=== PATIENT | male | born 1995 | race Caucasian/White ===

== ENCOUNTER 2016-09-19 07:16 | Emergency (ER) | payer BC ==
[2016-09-19] MEDS ORDERED: Ondansetron INJ* 2 MG/ML VIAL IV ONE (07:56)
[2016-09-19] MEDS ORDERED: Famotidine IV* 10 MG/ML 2 ML (20 mg) IV ONE (07:56)
[2016-09-19] MEDS: NS 0.9% 1000 ML* 2,000 ML IV ONE ×2 (08:57→08:58)
--- NOTE | 2016-09-19 09:03 | RAD ---
HISTORY: Fever COMPARISONS: None VIEWS: 2: Frontal dual-energy and lateral views of the chest. FINDINGS: CARDIOMEDIASTINAL SILHOUETTE: The cardiomediastinal silhouette is normal. RADHA: The radha are normal. PLEURA: The costophrenic angles are sharp. No pleural abnormalities are noted. LUNG PARENCHYMA: The lungs are clear. ABDOMEN: The upper abdomen is clear. There is no subphrenic gas. BONES AND SOFT TISSUES: No bone or soft tissue abnormalities are noted. OTHER: None. IMPRESSION: NO ACTIVE CARDIOPULMONARY DISEASE.
[2016-09-19 09:04] LABS: Hematocrit 47 % (42-52); Mean Corpuscular HGB Conc 34 g/dl (31-36); Mean Corpuscular Hemoglobin 30 pg (27-31); Mean Corpuscular Volume 87 fL (80-94); Mean Platelet Volume 8 um3 (7.4-10.4); Red Blood Count 5.33 10^6/ul (4.0-5.4); Red Cell Distribution Width 13 % (10.5-15); White Blood Count 5.1 10^3/ul (3.5-10.8)
[2016-09-19 09:20] LABS: Albumin 4.5 g/dL (3.2-5.2); BUN/Creatinine Ratio 16.1 (8-20); C Reactive Protein 65.3 mg/L (< 5.00); Calcium 9.6 mg/dL (8.6-10.3); EGFR African American 107.5 (>60); EGFR Non-African American 83.6 (>60); Globulin 3.9 g/dL (2-4); Magnesium 1.9 mg/dL (1.9-2.7); Total Bilirubin 0.4 mg/dL (0.2-1.0); Total Protein 8.4 g/dL (6.4-8.9)
[2016-09-19] MEDS ORDERED: Acetaminophen TAB* 325 MG PO ONE (09:29)
[2016-09-19 11:27] LABS: Urine Bacteria Absent (Absent); Urine Bilirubin Negative (Negative); Urine Glucose Negative (Negative); Urine Nitrite Negative (Negative)
[2016-09-19] MEDS ORDERED: NS 0.9% 1000 ML* 1,000 ML IV ONE (11:27)
[2016-09-19 13:48] VITALS: BP 122/60
--- NOTE | 2016-09-19 23:00 | ED ---
Sarah Allen Matthew, scribed for Enmanuel Lewis MD on 09/19/16 at 0813 . HPI Febrile Illness - HPI Summary HPI Summary: A 21 y/o male presents to the ED with sinus pain and fever since 09/11/16. The patient was in the [place] and returned 09/11/16 feeling ill. He was seen on 09/16/16 and was placed on 1000mg of amoxicillin twice daily by his PCP in [facility]. He called his PCP back and stated that Abx wasn't work and was prescribed an additional Z-Pack. Associated symptoms today include nausea, diarrhea - after taking the Abx, fever, chills, weakness, diaphoresis, nasal congestion, post-nasal drip, sinus pain, and abdominal pain - after taking the Abx. He denies itchy or watery eyes. Hx of seasonal allergies around this time. PMHx of pneumonia and asthma. He's concerned about developing pneumonia. - History of Current Complaint Chief Complaint: EDUpperRespComplaint Time Seen by Provider: 09/19/16 07:46 Hx Obtained From: Patient Onset/Duration: Started Days Ago, Atraumatic, Still Present Timing: Constant Temperature: 100.6 F Initial Severity: Moderate Current Severity: Moderate Pain Intensity: 6 Pain Scale Used: 0-10 Numeric Associated Signs and Symptoms: Chills, Diarrhea, Nausea, Weakness - general, Other: - Diaphoresis; Nasal Congestion; Post-nasal drip; sinus pain; abdominal pain - Allergy/Home Medications Allergies/Adverse Reactions: Allergies Allergy/AdvReac Type Severity Reaction Status Date / Time Sulfa Antibiotics Allergy Unknown Verified 07/24/15 18:15 Reaction Details PMH/Surg Hx/FS Hx/Imm Hx Endocrine/Hematology History: Denies: Hx Diabetes Respiratory History: Reports: Hx Asthma, Hx Pneumonia Infectious Disease History: Reports: Traveled Outside the [place] in Last 30 Days - Family History Known Family History: Negative: Cardiac Disease, Hypertension, Diabetes - Social History Alcohol Use: Occasionally Hx Substance Use: No Substance Use Type: Reports: None Hx Tobacco Use: No Smoking Status (MU): Unknown if Ever Smoked Review of Systems Positive: Fever, Chills, Skin Diaphoresis Eyes: Negative Negative: Drainage ENT: Other - nasal congestion; post-nasal drip; sinus pain Cardiovascular: Negative Respiratory: Negative Positive: Abdominal Pain Genitourinary: Negative Musculoskeletal: Negative Skin: Negative Positive: Weakness - general Psychological: Normal All Other Systems Reviewed And Are Negative: Yes Physical Exam - Summary Physical Exam Summary: VITAL SIGNS: Reviewed. GENERAL: Patient is a well developed and nourished male who is lying comfortable in the stretcher. Patient is not in any acute respiratory distress. HEAD AND FACE: Normocephalic and atraumatic. EYES: PERRLA, EOMI x 2, No injected conjunctiva. EARS: Hearing grossly intact. Ear canals and tympanic membranes are WNL. MOUTH: Dry oral mucosa NECK: Supple, trachea is midline, no adenopathy, no JVD. CHEST: Symmetric, no tenderness at palpation LUNGS: Clear to auscultation bilaterally. No wheezing or crackles. CVS: RRR,, S1 and S2 present, no murmurs or gallops appreciated. ABDOMEN: Soft, non-tender. No signs of distention. Positive bowel sounds. No rebound no guarding, and no masses palpated. No abdominal bruit or pulsations. EXTREMITIES: FROM in all major joints, no edema, no cyanosis or clubbing. NEURO: Alert and oriented x 3. No acute neurological deficits. Speech is normal. SKIN: Dry and warm Triage Information Reviewed: Yes Vital Signs On Initial Exam: Initial Vitals Temp Pulse Resp BP Pulse Ox 100.6 F 104 18 148/76 100 09/19/16 07:27 09/19/16 07:27 09/19/16 07:27 09/19/16 07:27 09/19/16 07:27 Vital Signs Reviewed: Yes Diagnostics - Vital Signs Vital Signs Temp Pulse Resp BP Pulse Ox 09/19/16 07:35 100.6 F 104 18 148/76 100 09/19/16 07:27 100.6 F 104 18 148/76 100 - Laboratory Lab Results: Lab Results 09/19/16 09/19/16 09/19/16 Range/Units 08:45 08:50 08:50 WBC 5.1 (3.5-10.8) 10^3/ul RBC 5.33 (4.0-5.4) 10^6/ul Hgb 16.0 (14.0-18.0) g/dl Hct 47 (42-52) % MCV 87 (80-94) fL MCH 30 (27-31) pg MCHC 34 (31-36) g/dl RDW 13 (10.5-15) % Plt Count 162 (150-450) 10^3/ul MPV 8 (7.4-10.4) um3 Neut % (Auto) 55.5 (38-83) % Lymph % (Auto) 27.0 (25-47) % Polk % (Auto) 13.6 H (1-9) % Eos % (Auto) 0.5 (0-6) % Baso % (Auto) 3.4 H (0-2) % Absolute Neuts (auto) 2.8 (1.5-7.7) 10^3/ul Absolute Lymphs (auto) 1.4 (1.0-4.8) 10^3/ul Absolute Monos (auto) 0.7 (0-0.8) 10^3/ul Absolute Eos (auto) 0 (0-0.6) 10^3/ul Absolute Basos (auto) 0.2 (0-0.2) 10^3/ul Absolute Nucleated RBC 0.01 10^3/ul Nucleated RBC % 0.2 Sodium 135 (133-145) mmol/L Potassium 4.0 (3.5-5.0) mmol/L Chloride 100 L (101-111) mmol/L Carbon Dioxide 27 (22-32) mmol/L Anion Gap 8 (2-11) mmol/L BUN 18 (6-24) mg/dL Creatinine 1.12 (0.67-1.17) mg/dL Est GFR ( Amer) 107.5 (>60) Est GFR (Non-Af Amer) 83.6 (>60) BUN/Creatinine Ratio 16.1 (8-20) Glucose 93 (70-100) mg/dL Lactic Acid (0.5-2.0) mmol/L Calcium 9.6 (8.6-10.3) mg/dL Magnesium 1.9 (1.9-2.7) mg/dL Total Bilirubin 0.40 (0.2-1.0) mg/dL AST 19 (13-39) U/L ALT 13 (7-52) U/L Alkaline Phosphatase 46 (34-104) U/L C-Reactive Protein 65.30 H (< 5.00) mg/L Total Protein 8.4 (6.4-8.9) g/dL Albumin 4.5 (3.2-5.2) g/dL Globulin 3.9 (2-4) g/dL Albumin/Globulin Ratio 1.2 (1-3) Amylase 33 (29-103) U/L Lipase 13 (11.0-82.0) U/L Influenza A (Rapid) Negative (Negative) Influenza B (Rapid) Negative (Negative) Group A Strep Rapid (Negative) 09/19/16 09/19/16 Range/Units 08:50 09:42 WBC (3.5-10.8) 10^3/ul RBC (4.0-5.4) 10^6/ul Hgb (14.0-18.0) g/dl Hct (42-52) % MCV (80-94) fL MCH (27-31) pg MCHC (31-36) g/dl RDW (10.5-15) % Plt Count (150-450) 10^3/ul MPV (7.4-10.4) um3 Neut % (Auto) (38-83) % Lymph % (Auto) (25-47) % Polk % (Auto) (1-9) % Eos % (Auto) (0-6) % Baso % (Auto) (0-2) % Absolute Neuts (auto) (1.5-7.7) 10^3/ul Absolute Lymphs (auto) (1.0-4.8) 10^3/ul Absolute Monos (auto) (0-0.8) 10^3/ul Absolute Eos (auto) (0-0.6) 10^3/ul Absolute Basos (auto) (0-0.2) 10^3/ul Absolute Nucleated RBC 10^3/ul Nucleated RBC % Sodium (133-145) mmol/L Potassium (3.5-5.0) mmol/L Chloride (101-111) mmol/L Carbon Dioxide (22-32) mmol/L Anion Gap (2-11) mmol/L BUN (6-24) mg/dL Creatinine (0.67-1.17) mg/dL Est GFR ( Amer) (>60) Est GFR (Non-Af Amer) (>60) BUN/Creatinine Ratio (8-20) Glucose (70-100) mg/dL Lactic Acid 1.0 (0.5-2.0) mmol/L Calcium (8.6-10.3) mg/dL Magnesium (1.9-2.7) mg/dL Total Bilirubin (0.2-1.0) mg/dL AST (13-39) U/L ALT (7-52) U/L Alkaline Phosphatase (34-104) U/L C-Reactive Protein (< 5.00) mg/L Total Protein (6.4-8.9) g/dL Albumin (3.2-5.2) g/dL Globulin (2-4) g/dL Albumin/Globulin Ratio (1-3) Amylase (29-103) U/L Lipase (11.0-82.0) U/L Influenza A (Rapid) (Negative) Influenza B (Rapid) (Negative) Group A Strep Rapid Negative (Negative) Result Diagrams: 09/19/16 08:50 09/19/16 08:50 Lab Statement: Any lab studies that have been ordered have been reviewed, and results considered in the medical decision making process. - Radiology CXR Xray Interpretation: No Acute Changes - IMPRESSION: NO ACTIVE CARDIOPULMONARY DISEASE. Radiology Interpretation Completed By: Radiologist Re-Evaluation - Re-Evaluation First Eval Re-Evaluation Time: 11:26 Change: Improved Comment: The patient states he's feeling mild better. Course/Dx - Course Assessment/Plan: A 21 y/o male presents to the ED with sinus pain and fever since 09/11/16. The patient [place] in [place] [facility] [place] and returned 09/11/16 feeling ill. He was seen on 09/16/16 and was placed on 1000mg of amoxicillin twice daily by his PCP in [facility]. He called his PCP back and stated that Abx wasn't work and was prescribed an additional Z-Pack. Associated symptoms today include nausea, diarrhea - after taking the Abx, fever, chills, weakness, diaphoresis, nasal congestion, post-nasal drip, sinus pain, and abdominal pain - after taking the Abx. He denies itchy or watery eyes. Hx of seasonal allergies around this time. PMHx of pneumonia and asthma. He's concerned about developing pneumonia. Blood work WNL except C-Reactive Protein of 65.3. Urinalysis with trace ketones secondary to dehydration. Cdiff is negative. Influenza A&B negative. Repaid STREP negative. CXR shows no acute cardiopulmonary disease. In the ED course, the patient was given 3L of IV fluids , Tylenol for the fever, and his symptoms improved. Right now his temperature is 99.5, BP 124/73 and he feels better. Patients father is a physician and he requested to change the Abx for the sinusitis from amoxicillin to Augmentin and I will add Flonase for the acute sinusitis. At this point, I discussed my findings and test results with the patient and the patients mother who is a nurse and they were instructed to continue ROSE diet and increased hydration continue probiotics, and follow-up with PCP. If he develops bloody diarrhaea, abdominal pain, more fever or chills, weakness, lethargy they were instructed to return to the ED immediately for further management. They understand and agree. The patient is A&Ox3 and hemodynamically stable. - Febrile Illness Differential Diagnoses: Other: - Sinusitis, flu, pharyngitis, allergic rhinitis , colitis, gastroenteritis - Diagnoses Provider Diagnoses: Acute sinusitis, Diarrhea Discharge - Discharge Plan Condition: Stable Disposition: HOME Prescriptions: Amoxicillin/Clavulanate TAB* [Augmentin TAB 500 mg*] 500 mg PO TID #21 tab Fluticasone NASAL SPRAY 50MCG* [Flonase NASAL SPRAY 50MCG*] 2 spray LEFT NARE DAILY #1 btl Patient Education Materials: Amoxicillin/Clavulanate Potassium (By mouth), Fluticasone (Into the nose), Sinusitis (ED), Acute Diarrhea (ED) Referrals: [facility] HIPOLITO Holder [Primary Care Provider] - 3 Days Additional Instructions: Please follow-up with [facility] in 3 days. Please return to the ED if you develop bloody diarrhea, abdominal pain, worsening fever or chills, weakness, or become lethargic. The documentation as recorded by the Sarah connor Matthew accurately reflects the service I personally performed and the decisions made by me, Enmanuel Lewis MD.
--- NOTE | 2016-09-20 07:09 | PN ---
Progress Note - Progress Note Note: Toxigenic C Diff negative. fecal lactoferrin positive. nothing further at this time.
== END 2016-09-19 13:54 | disposition home or self-care (01) ==
LOC: ED 07:16
DX: J01.90 Acute sinusitis, unspecified (principal); R19.7 Diarrhea, unspecified; R50.9 Fever, unspecified; R11.0 Nausea; R68.83 Chills (without fever); R53.1 Weakness
CPT/HCPCS: 36415; 71020; 80053; 81003; 81015; 82150; 83605; 83630; 83690; 83735; 85025; 86140; 87493; 87502; 87651; 99284; A9270-GY; J2405